=== PATIENT | female | born 1980 | race Caucasian/White ===

== ENCOUNTER 2019-06-30 03:47 | Inpatient (IN) | payer MEDICAID ==
[~2019-06-30] VITALS: Ht 177.8 cm; Wt 98.2 kg
[~2019-06-30 03:47] MED LIST: OXYC-302 PO; PREN1TAB27 PO
[2019-06-30 05:05] VITALS: BP 108/73
[2019-06-30] MEDS ORDERED: OXYTOCIN 30U/ 0.9% NaCL 500ML 500 ML IV ONE (05:06)
[2019-06-30] MEDS ORDERED: D5%-LACTATED RINGERS 1,000 ML IV SCH (05:06)
[2019-06-30] MEDS ORDERED: LACTATED RINGERS 1,000 ML IV SCH (05:06)
[2019-06-30] MEDS ORDERED: FENTANYL PF 100 MCG/2ML IVPush PRN (05:30)
[2019-06-30] MEDS ORDERED: FENTANYL PF 100 MCG/2ML IV PRN (05:30)
[2019-06-30] MEDS ORDERED: SODIUM CITRATE/CITRIC ACID 30 ML UDC PO PRN (05:30)
[2019-06-30] MEDS ORDERED: ONDANSETRON 2MG/ML, 2ML IVPush PRN (05:30)
[2019-06-30] MEDS ORDERED: TERBUTALINE 1 MG/ML, 1ML IVPush PRN (05:30)
[2019-06-30] MEDS ORDERED: PLEASE ENTER HEIGHT AND WEIGHT MC SCH (05:30)
[2019-06-30] MEDS ORDERED: METOCLOPRAMIDE 5 MG/ML, 2ML IVPush PRN (05:30)
[2019-06-30] MEDS ORDERED: TERBUTALINE 1 MG/ML, 1ML SQ PRN (05:30)
[2019-06-30] MEDS ORDERED: CALCIUM CARBONATE 500 MG TAB.CHEW PO PRN (05:30)
[2019-06-30] MEDS ORDERED: ALUMINUM/MAG/SIMETHICONE 30 ML UDC PO PRN (05:30)
[2019-06-30] MEDS ORDERED: OXYTOCIN 30U/ 0.9% NaCL 500ML 500 ML IV PRN (05:43)
[2019-06-30] MEDS ORDERED: OXYTOCIN 30U/ 0.9% NaCL 500ML 500 ML ONE (05:45)
[2019-06-30 06:10] LABS: BASOPHILS # (AUTO) 0.03 x10^3/uL (0-0.1); BASOPHILS % (AUTO) 0 % (0-1); EOSINOPHILS # (AUTO) 0.06 x10^3/uL (0-0.4); EOSINOPHILS % (AUTO) 1 % (1-7); LYMPHOCYTES # (AUTO) 1.64 x10^3/uL (1-3.4); LYMPHOCYTES % (AUTO) 19 % (22-44); MD NO; MEAN CORPUSCULAR HEMOGLOBIN 30.9 pg (27.0-34.8); MEAN CORPUSCULAR HGB CONC 33.4 g/dL (32.4-35.8); MEAN CORPUSCULAR VOLUME 92.4 fL (80-100); MEAN PLATELET VOLUME 8.7 fL (7.4-10.4); MONOCYTES # (AUTO) 0.39 x10^3/uL (0.2-0.8); MONOCYTES % (AUTO) 5 % (2-9); NEUTROPHILS # (AUTO) 6.71 x10^3/uL (1.8-6.8); NEUTROPHILS % (AUTO) 76 % (42-75); PLATELET COUNT 230 x10^3/uL (130-400); RED BLOOD COUNT 3.57 x10^6/uL (3.82-5.3)
[2019-06-30] MEDS ORDERED: NEWBORN KIT ONE (07:07)
[2019-06-30] MEDS ORDERED: LIDOCAINE 1%, 20ML ONE (11:17)
[2019-06-30] MEDS ORDERED: MISOPROSTOL 200 MCG TABLET ONE (11:17)
[2019-06-30] MEDS: OXYTOCIN 30U/ 0.9% NaCL 500ML 500 ML IV SCH (14:39)
[2019-06-30] MEDS ORDERED: METHYLERGONOVINE 0.2 MG/ML IM PRN (15:00)
[2019-06-30] MEDS ORDERED: SIMETHICONE 80 MG CHEW TAB PO PRN (15:00)
[2019-06-30] MEDS ORDERED: BISACODYL 10 MG SUPP PR PRN (15:00)
[2019-06-30] MEDS ORDERED: MISOPROSTOL 200 MCG TABLET PR PRN (15:00)
[2019-06-30] MEDS ORDERED: ONDANSETRON 2MG/ML, 2ML IV PRN (15:00)
[2019-06-30] MEDS ORDERED: OXYcodone/APAP 5/325MG TABLET PO PRN (15:00)
[2019-06-30] MEDS ORDERED: HYDROcodone/APAP 5/325 TABLET PO PRN (15:00)
[2019-06-30] MEDS ORDERED: IBUPROFEN 600 MG TABLET ONE (15:07)
[2019-06-30] MEDS ORDERED: IBUPROFEN 800 MG TABLET ONE (15:10)
[2019-06-30] MEDS: IBUPROFEN 800 MG TABLET PO PRN (15:12)
[2019-06-30 16:20] VITALS: BP 105/70
[2019-06-30] MEDS ORDERED: DIPH,PERTUSS(ACELL),TET VAC/PF NC IM-VACC ONE (18:30)
[2019-06-30 20:00] VITALS: BP 106/71
[2019-06-30] MEDS: DOCUSATE 100 MG CAPSULE PO PRN (20:13)
[2019-06-30 22:15] LABS: BASOPHILS % (AUTO) 1 % (0-1); EOSINOPHILS # (AUTO) 0.11 x10^3/uL (0-0.4); EOSINOPHILS % (AUTO) 1 % (1-7); LYMPHOCYTES # (AUTO) 1.68 x10^3/uL (1-3.4); LYMPHOCYTES % (AUTO) 15 % (22-44); MD NO; MEAN CORPUSCULAR HEMOGLOBIN 31.1 pg (27.0-34.8); MEAN CORPUSCULAR HGB CONC 33.6 g/dL (32.4-35.8); MEAN CORPUSCULAR VOLUME 92.6 fL (80-100); MEAN PLATELET VOLUME 8.6 fL (7.4-10.4); MONOCYTES # (AUTO) 0.41 x10^3/uL (0.2-0.8); MONOCYTES % (AUTO) 4 % (2-9); NEUTROPHILS # (AUTO) 9.06 x10^3/uL (1.8-6.8); NEUTROPHILS % (AUTO) 80 % (42-75); PLATELET COUNT 208 x10^3/uL (130-400); RED BLOOD COUNT 3.37 x10^6/uL (3.82-5.3); RED CELL DISTRIBUTION WIDTH 14.2 % (9.6-15.2)
[2019-07-01] MEDS: OXYTOCIN 30U/ 0.9% NaCL 500ML 500 ML IV SCH ×2 (00:39→10:39)
[2019-07-01 01:00] VITALS: BP 104/70
[2019-07-01] MEDS: IBUPROFEN 800 MG TABLET PO PRN ×2 (01:03→09:09)
[2019-07-01 04:30] VITALS: BP 101/71
[2019-07-01 07:30] VITALS: BP 107/73
[2019-07-01] MEDS ORDERED: PRENATAL VIT/IRON/FA 1 EACH TABLET PO SCH (09:00)
[2019-07-01] MEDS: DOCUSATE 100 MG CAPSULE PO PRN (09:09)
[2019-07-01 12:45] VITALS: BP 122/78
== END 2019-07-01 15:00 | disposition home or self-care (01) | DRG 807 ==
LOC: LDIP 05:04 → 2NW 16:15
PROVIDERS: ADMIT Obstetrics & Gynecology; ATTEND Obstetrics & Gynecology
PROC: 10E0XZZ Delivery of Products of Conception, External Approach (ICD-10-PCS; principal; 2019-06-30)
PROC: 3E033VJ Introduction of Other Hormone into Peripheral Vein, Percutaneous Approach (ICD-10-PCS; 2019-06-30)
PROC: 10907ZC Drainage of Amniotic Fluid, Therapeutic from Products of Conception, Via Natural or Artificial Opening (ICD-10-PCS; 2019-06-30)
DX: O77.0 Labor and delivery complicated by meconium in amniotic fluid (principal); Z37.0 Single live birth; Z3A.39 39 weeks gestation of pregnancy
CPT/HCPCS: 36415; 85025; 86592; 86850; 86900; 90715; G0378; J2590; J7120